=== PATIENT | female | born 1980 | race Caucasian/White ===

== ENCOUNTER 2022-05-06 01:07 | Day surgery (SDC) | payer OTHER, SELFPAY ==
[2022-04-22 13:22] VITALS: BMI 22.1
--- NOTE | 2022-04-24 08:05 | PC.NURSE ---
Report to the Outpatient Waiting Room, entrance under the green pavilion located off [facility], at time 0600 on date _05/06/22 . Planned Procedure Time: 729 . Time changes happen often and if your time is changed the preop area will call you the afternoon before. - You and your visitor will be asked to self-screen and do not enter if you have any COVID symptoms. - Only one visitor is requested with a max of two and NO children visitors are allowed at this time. - The patient visitor may be requested to leave or wait in car when not with patient due to distancing restrictions. - A mask is optional within the hospital. Patients may have clear liquids (water, carbonated beverages, clear teas, apple juice) until 3 hours prior to surgery with a maximum of 20 ounces. - No food from midnight until time of surgery - Infants may have breast milk until 4 hours before surgery, infant formula 6 hours prior to surgery. - Children will be allowed to drink immediately following surgery. If applicable, please bring a bottle or sippy cup to assist with drinking. Juice, water, soda, and popsicles are readily available. For infants on formula, please bring formula the day of surgery. Pacifiers are allowed. Take the following medications with a SIP of water the morning of surgery: ___n/a Medications to discontinue per physician n/a Date to take last dose___n/a Please no make-up, nail algerian, hairspray, perfume, deodorant, or body powder the day of surgery. No jewelry (including any body piercings) or valuables the day of surgery, leave them at home. Please take a shower or bath the night before, or the morning of, surgery with an antibacterial soap. Wear comfortable, loose fitting clothing. Children are encouraged to wear pajamas. - Jewelry must be removed prior to entering the operating room. Rings and piercings that are not removed may be cut off. - The hospital will not accept responsibility for valuables. - Please leave all valuables, including medications, at home the day of surgery. If you are going home after surgery, a licensed flatbed truck driver must drive you home. - NO public transportation without another adult if you receive anesthesia. - We recommend that an adult stay with you for 24 hours following discharge. - We also recommend that you do not drive, make important decision, drink alcoholic beverages, or take any drugs that were not prescribed by your health care provider for at least 24 hours after your discharge time. For Pediatric surgeries, we recommend two adults accompany the child home. Follow any additional instructions given to you from your surgeon. If you or anyone in your household have experienced Covid symptoms in the past week, please notify your surgeon or the nurse liaison at the phone number below for possible testing. Telephone instructions given to __LONDON and asked if any additional questions and then verbalized understanding. Patient advised to call surgeon office or pre surgery nurse liaison [phone] if any additional questions.
--- NOTE | 2022-04-30 09:03 | PM.IMHP ---
H&P: HPI History of Present Illness Date/Time: 04/30/22 09:03 42-year-old 3 para 1021 female presents with complaints of menstrual cycles lasting 5-7 days 3-5 days heavy clotting cramping is significant amount of discomfort as well. Ultrasound performed revealed thickened endometrial cavity otherwise nose significant abnormalities. Patient also desires sterilization in the form of tubal ligation. We have discussed the permanence failure rate increased risk of ectopic and regret. Patient states good understanding and desires to proceed. Chief Complaint: Menometrorrhagia Review of Systems Review of Systems: All systems reviewed & are unremarkable except as noted in HPI and below PMFSH Past Medical History Medical History Abnormal Pap smear of cervix 04/18/2018 lgsil +hpv--was scheduled for colposcopy several times, never done Anemia Anxiety and depression Arthritis Chronic headaches Depression Difficulty sleeping History of back problems History of frequent headaches IBS (irritable bowel syndrome) Screening mammogram, encounter for Surgical History Surgical History H/O LEEP (~2001) History of dilation and curettage (~2000) Family History Family History Mother Hypertension Other Cerebrovascular accident maternal aunt Grandparent Malignant neoplasm of prostate maternal grandfather Social History Social History Smoking packs per day: 0.75 Smoking cigarettes per day: 15.0 Years smoked: 20 Smoking pack-years: 15.00 Smoking status: Current every day smoker Tobacco type: cigarettes Alcohol intake: former Substance use: current Substance use type: marijuana Other substance usage details: daily Lack of Transportation: No Lack of Food: Never True Current Housing: I Have Housing Concerned About Future Housing: No Difficulty Paying Gas/Electric Bills: No Difficulty Paying for Meds: No Currently Unemployed: No Education: High School Diploma/GED Difficulty w/ Childcare or Family Care: No Living arrangements: with family Occupation/Education: occupation Gender identity (if verbalized by the patient): Female Sexual Orientation (if Verbalized by the Patient): Straight or Heterosexual Spiritual care concerns: No Agree to blood products: Yes Meds Home Medications and Allergies Home Medications Medication Instructions Recorded Confirmed Type No Home Medications 02/22/22 04/22/22 History Allergies Allergy/AdvReac Type Severity Reaction Status Date / Time No Known Allergies Allergy Verified 03/10/22 15:37 Exam Const: General: cooperative, healthy appearing and comfortable Resp: Effort & Inspection: normal respiratory effort Auscultation: clear to auscultation bilaterally Cardio: Rate: regular rate Rhythm: regular rhythm GI: Inspection: normal to inspection Auscultation: normal bowel sounds : External Female Exam: normal external appearance Speculum Exam - Vagina: normal appearance of the vagina Speculum Exam - Cervix: normal appearance of the cervix Bimanual exam- vagina & uterus: normal bimanual exam Bimanual Exam- Adnexa, other: normal adnexae Assessment and Plan Assessment and plan (1) Menometrorrhagia: Code(s): N92.1 - Excessive and frequent menstruation with irregular cycle Status: Acute (2) Thickened endometrium: Code(s): R93.89 - Abnormal findings on diagnostic imaging of other specified body structures Status: Acute (3) Encounter for female sterilization procedure: Code(s): Z30.2 - Encounter for sterilization Status: Acute Plan 1. Hysteroscopy with uterine curettings 2. Endometrial ablation 3. Laparoscopic tubal ligation via electrocau
[2022-05-06] VITALS (7 sets, daily range): BP systolic 97–119; BP diastolic 54–72; PULSE 52–73; RESP 14–20; TEMP 36.4–36.6; O2SAT 100
[2022-05-06] MEDS: KETOROLAC 15 MG/ML VIAL (*BKC) IV PUSH (06:50)
[2022-05-06] MEDS: ACETAMINOPHEN 500 MG TABLET 1000 MG PO (06:50)
--- NOTE | 2022-05-06 06:59 | WPDANESEPPF ---
Anes - Initial Pre Proc Eval Procedure: Operation Date: 05/06/22 07:30 Proposed Procedures p Laparoscopic Bilateral Tubal Sterilization, - Jesús Markham MD s Hysteroscopy, Dilation and Curettage, Spring Endometrial Ablation - Jesús Markham MD Date/Time: 05/06/22 06:59 Surgeon: Jesús Markham MD Pre Op Diagnosis: menometrorrhagia,sterilization Patient Data Age: 42 Gender: F Height: 1.7 m Weight: 57 kg Last Vital Signs Temp 36.4 C 05/06/22 06:39 Pulse 63 05/06/22 06:39 Resp 16 05/06/22 06:39 BP 108/54 L 05/06/22 06:39 Pulse Ox 100 05/06/22 06:39 O2 Del Method Room Air 05/06/22 06:39 Allergies Allergy/AdvReac Type Severity Reaction Status Date / Time No Known Allergies Allergy Verified 05/06/22 06:21 Home Medications Medication Instructions Recorded Confirmed Type No Home Medications 02/22/22 05/06/22 History Patient hx anesthesia problems: none Family hx anesthesia problems: none Results Review: All pre-operative results and documents have been reviewed as part of the pre-operative evaluation. [facility] Past Medical History Medical History Abnormal Pap smear of cervix 04/18/2018 lgsil +hpv--was scheduled for colposcopy several times, never done Anemia Anxiety and depression Arthritis Chronic headaches Depression Difficulty sleeping History of back problems History of frequent headaches IBS (irritable bowel syndrome) Screening mammogram, encounter for Surgical History Surgical History H/O LEEP (~2001) History of dilation and curettage (~2000) Family History Family History Mother Hypertension Other Cerebrovascular accident maternal aunt Grandparent Malignant neoplasm of prostate maternal grandfather Social History Social History Smoking packs per day: 0.75 Smoking cigarettes per day: 15.0 Years smoked: 20 Smoking pack-years: 15.00 Smoking status: Current every day smoker Tobacco type: cigarettes Alcohol intake: former Substance use: current Substance use type: marijuana Other substance usage details: daily Lack of Transportation: No Lack of Food: Never True Current Housing: I Have Housing Concerned About Future Housing: No Difficulty Paying Gas/Electric Bills: No Difficulty Paying for Meds: No Currently Unemployed: No Education: High School Diploma/GED Difficulty w/ Childcare or Family Care: No Living arrangements: with family Occupation/Education: occupation Gender identity (if verbalized by the patient): Female Sexual Orientation (if Verbalized by the Patient): Straight or Heterosexual Spiritual care concerns: No Agree to blood products: Yes Anes - Eval Final PreProcedure Day of Procedure 05/06/22 06:59 Patient weight: normal Heart: regular rate and rhythm Lungs: decreased breath sounds Airway: Mallampati scale class II Neurological: alert and oriented Last oral intake: >/= 8 hours ASA classification: II Emergent: no Anesthetic plan: proceed Anesthesia type and monitoring: general ETT and standard monitoring Results Review: All pre-operative results and documents have been reviewed as part of the pre-operative evaluation. Informed Consent: The patient's anesthetic plan and its attendant risks and benefits were discussed with the patient/family/POA. Questions were solicited and answers provided to the satisfaction of the patient/family/POA.
--- NOTE | 2022-05-06 07:02 | WPDHPUPDATE1 ---
History and Physical Update Update Date/Time: 05/06/22 07:02 History and Physical has been reviewed, including an updated exam of the patient. There are NO changes in the patient's condition. Risks, benefits, and alternatives have been discussed and questions answered. Patient agrees to proceed with procedure.
[2022-05-06] MEDS: LACTATED RINGERS 1,000 ML 30 ML IV CONT (07:13)
[2022-05-06] MEDS: ceFAZolin 2 GM/D5W 50 ML 2 GM/50 ML BAG IVPB (07:24)
--- NOTE | 2022-05-06 08:03 | W.PM.PROC2 ---
Procedure Note - Detailed Date of Procedure 05/06/22 Pre-op Diagnosis 1. Menometrorrhagia 2. Female sterilization Post-op Diagnosis Same Procedure Performed 1. Laparoscopic bilateral tubal ligation via electrocautery 2. Hysteroscopy with uterine curettings 3. Endometrial ablation Surgeon Jesús Markham MD Anesthesia General Findings 1. Laparoscopic evaluation revealed no abnormalities 2. Hysteroscopy revealed thickened cavity but no specific abnormalities Description of Procedure Patient prepped in the usual manner for this procedure. Cervical is referred placed for uterine mobility throughout the case. Abdominal trocar sites were marked and trocars were placed under direct visualization. Patient was placed in Trendelenburg position and findings were as noted above. Using the bipolar cautery on either tube in [address] the tubes were desiccated without difficulty. Gas was allowed to escape trocars removed and incisions approximated using suture and glue. Cervix was then dilated to allow the hysteroscope to be placed which revealed thickened tissue. Curettings were obtained Spring instrument was placed a cavity assessment performed. The instrument was activated and at the end of the procedure hysteroscopic exam again revealed destroyed tissue but no evidence of other abnormalities. Patient was sent to recovery room in stable condition. Estimated Blood Loss 10 Drains No Packing No Pathology Yes Complications No immediate complications Condition Stable Disposition PACU [facility] Billing Surgery - Charge Forward: Surgery Billing
[2022-05-06] MEDS: fentaNYL CITRATE INJ (*CRX) 100 MCG/2 ML VIAL 25 MCG IV PUSH ×4 (08:27→08:58)
== END 2022-05-06 10:19 | disposition home or self-care (01) ==
PROVIDERS: Visit Provider Obstetrics & Gynecology
PROC: (CPT 58671; principal; 2022-05-06 07:30)
PROC: 0U5B8ZZ Destruction of Endometrium, Via Natural or Artificial Opening Endoscopic (ICD-10-PCS; CPT 58563; 2022-05-06 07:30)
DX: N92.1 Excessive and frequent menstruation with irregular cycle (principal); Z30.2 Encounter for sterilization; F17.210 Nicotine dependence, cigarettes, uncomplicated; F12.90 Cannabis use, unspecified, uncomplicated
CPT/HCPCS: 58670; 58563; A9270; J0690; J1100; J1885; J2250; J2405; J2704; J2710; J3010; J7120